=== PATIENT | female | born 2005 | race Caucasian/White ===

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

== ENCOUNTER 2024-04-25 16:04 | Emergency (ER) | payer OTHER ==
[~2024-04-25] VITALS: Ht 170.1 cm; Wt 124.7 kg
[~2024-04-25 16:04] MED LIST changes: +SINGULAIR10 M1 PO; +VISTARIL25 MG PO; +VITAMIN D310 MC2 PO
[2024-04-25] MEDS ORDERED: PREDNISONE20 M1 PO (18:15)
[2024-04-25] MEDS ORDERED: AVPAK AZITHROM250 M1 PO (18:15)
[2024-04-25] MEDS ORDERED: AZITHROMYCIN 250 MG TAB PO ONE (18:20)
[2024-04-25] MEDS ORDERED: methylPREDNISolone sod succ 125 MG VIAL IM ONE (18:20)
== END 2024-04-25 18:41 | disposition home or self-care (01) ==
LOC: ED 16:04
DX: J45.909 Unspecified asthma, uncomplicated (principal); Z20.822 Contact with and (suspected) exposure to COVID-19; F32.A Depression, unspecified; F41.9 Anxiety disorder, unspecified; F90.9 Attention-deficit hyperactivity disorder, unspecified type; G43.909 Migraine, unspecified, not intractable, without status migrainosus; Z88.0 Allergy status to penicillin; Z88.2 Allergy status to sulfonamides; Z88.8 Allergy status to other drugs, medicaments and biological substances; Z98.890 Other specified postprocedural states

== ENCOUNTER 2024-06-26 08:10 | Emergency (ER) | payer OTHER ==
[~2024-06-26] VITALS: Wt 128.4 kg
[~2024-06-26 08:10] MED LIST changes: +AVPAK AZITHROM250 M1 PO; +PREDNISONE20 M1 PO
[2024-06-26] MEDS ORDERED: Ondansetron Hydrochloride 4 MG TAB SL ONE (09:05)
[2024-06-26 09:35] LABS: BASO % 0.3 % (0.0-1.0); EOS # 0.1 10*3/uL (0.0-0.4); HEMATOCRIT 43.1 % (37.0-47.0); MEAN CELL VOLUME 80.3 fl (81.0-99.0); MEAN CORPUSCULAR HGB 25.5 pg (27.0-31.0); MEAN CORPUSCULAR HGB CONC 31.8 g/dl (33.0-37.0); MONO # 0.5 10*3/uL (0.1-1.0); MONO % 4.5 % (3.0-9.0); NEUT # 9.8 10*3/uL (2.3-7.9); PLATELET COUNT AUTOMATED 395 10*3/uL (130-400); RED BLOOD COUNT 5.37 10*6/uL (4.10-5.10); RED CELL DISTRI WIDTH 14.1 % (0-14.5); WHITE BLOOD COUNT 11.9 10*3/uL (4.8-10.8)
[2024-06-26 09:56] LABS: BUN 15 mg/dl (9-23); CHLORIDE 106 mmol/L (98-107); POTASSIUM 3.8 mmol/L (3.4-5.1)
[2024-06-26] MEDS ORDERED: Ondansetron4 MG PO (10:27)
== END 2024-06-26 10:32 | disposition home or self-care (01) ==
LOC: ED 08:10
PROVIDERS: Internal Medicine
DX: K52.9 Noninfective gastroenteritis and colitis, unspecified (principal); F32.A Depression, unspecified; F41.9 Anxiety disorder, unspecified; J45.909 Unspecified asthma, uncomplicated; F90.9 Attention-deficit hyperactivity disorder, unspecified type; Z88.0 Allergy status to penicillin; Z88.2 Allergy status to sulfonamides; Z88.8 Allergy status to other drugs, medicaments and biological substances; Z98.890 Other specified postprocedural states